=== PATIENT | male | born 1945 | race Caucasian/White ===

== ENCOUNTER 2022-11-07 06:54 | Day surgery (SDC) | payer MEDICARE, OTHER ==
[~2022-11-07 06:54] MED LIST: Dextrose 5%-0.45% NaCl 1,000 ML IV SCH; Midazolam 1 MG/ML 2 ML SDV ONE; Sodium Chloride 0.9% 10 ML Syringe FLUSH PRN; Sodium Chloride 0.9% 10 ML Syringe FLUSH SCH; fentaNYL 100 MCG/2 ML SDV ONE
[2022-11-07] MEDS ORDERED: fentaNYL 100 MCG/2 ML SDV IV ONE ×2 (08:13)
[2022-11-07] MEDS ORDERED: Midazolam 1 MG/ML 2 ML SDV IV ONE ×6 (08:14→08:24)
== END 2022-11-07 10:20 | disposition home or self-care (01) ==
LOC: DL.ENDO 06:54
PROVIDERS: ATTEND Internal Medicine Gastroenterology
DX: Z12.11 Encounter for screening for malignant neoplasm of colon (principal); K57.30 Diverticulosis of large intestine without perforation or abscess without bleeding; I48.91 Unspecified atrial fibrillation; I10 Essential (primary) hypertension; I42.2 Other hypertrophic cardiomyopathy; G56.00 Carpal tunnel syndrome, unspecified upper limb; Z86.010 Personal history of colon polyps; Z80.0 Family history of malignant neoplasm of digestive organs; Z90.49 Acquired absence of other specified parts of digestive tract; Z98.890 Other specified postprocedural states
CPT/HCPCS: G0105; J2250; J3010; J7042